=== PATIENT | female | born 1995 | race Caucasian/White ===

== ENCOUNTER 2016-10-05 19:03 | Emergency (ER) | payer OTHER ==
--- NOTE | 2016-10-05 19:30 | CPEKG ---
Heart Rate: 76 RR Interval: 789 P-R Interval: 132 QRSD Interval: 82 QT Interval: 376 QTC Interval: 423 P [place]: 8 QRS [place]: 41 T Wave [place]: 34 EKG Severity - NORMAL ECG - EKG Impression: SINUS RHYTHM Electronically Signed By: David Farley 05-Oct-2016 23:05:15
--- NOTE | 2016-10-05 19:40 | EDPHY ---
HPI/HX/ROS/PE/MDM Narrative: CHIEF COMPLAINT: Chest pain HPI: This patient is a normally healthy 21 year old female who presents to the Emergency Department complaining of left-sided chest pain beginning two days ago and worsening over time. She describes the pain as initially similar to heartburn and presenting episodically, localized to her left epigastric region and substernal chest. Today, however, the pain has remained persistent and has began to radiate superiorly to her left shoulder and left back. She reports one episode of near syncope and vomiting earlier today after eating. She has never experienced any similar pain in the past. She denies dyspnea, weakness, fever or chills, hematemesis, or any additional complaints. REVIEW OF SYSTEMS: Aside from elements discussed in the HPI, a comprehensive 10-point review of systems was reviewed and is negative. PMH: Asthma. IUD in place. SOCIAL HISTORY: Smokes occasionally. PHYSICAL EXAM: General:Patient is alert, in no acute distress. ENT:Eyes are normal to inspection. ENT inspection normal. Neck: Normal inspection. Full range of motion. Respiratory:No respiratory distress. Breath sounds normal bilaterally. Cardiovascular: Regular rate and rhythm. Strong peripheral pulses. Normal cap refill. Abdomen:Mild epigastric tenderness. There are no peritoneal signs. There are normal bowel sounds. Back: Normal to inspection. No tenderness to palpation. Skin: Normal color. No rash. Warm and dry. Extremities: Normal appearance. Full range of motion. Neuro: Oriented x3. Normal motor function. Normal sensory function. ED Course: Normally healthy, well-appearing 21-year-old female presents with complaint of epigastric abdominal pain and left-sided chest pain with increasing radiation to shoulder and back. Her pain is not exertional or pleuritic in nature. It is associated with vomiting after eating today. There is no point tenderness on exam. Plan for abdominal US, chest x-ray, and labs. Chest x-ray reviewed by me reveals no acute abnormality. 2024: US of the abdomen is negative per Dr. Marco Antonio Alvarez, radiology. Labs reviewed. Bilirubin is elevated at 2.9. AST elevated at 4890. ALT elevated at 2768. Upon further inquiry, the patient tells me that she has been taking doxycycline for facial lesion for the past 3 weeks. She denies any recent international travel. No recent Tylenol use. 2212: Consultation with Dr. Delgadillo, gastroenterology, who will see the patient in his office on Saturday. He recommends obtaining an ammonia level and hepatitis panel in preparation for that appointment. She will need to return to the ED daily this weekend for labs. I discussed this with the patient. She is agreeable to this. TO TOMORROW'S PROVIDER: The patient needs daily LFTs and ProTime. If they are rising significantly, then she needs to be admitted. Otherwise, she has instructions to follow-up with Dr. Delgadillo on Saturday. MDM: Patient presents with epigastric pain and is found to have significantly elevated LFTs. She denies out of the country travel, Tylenol use, excessive alcohol abuse. She has been taking doxycycline for the last three weeks for a lesion on her face, prescribed by a medical assistant dermatology. - Data Points Imaging Results: Imaging Impressions Abdomen Ultrasound 10/05/16 19:39 Impression: Negative right upper quadrant ultrasound. No findings of cholelithiasis or acute cholecystitis. Results called and discussed with David Farley MD on 10/05/2016 at 20:24 Chest X-Ray 10/05/16 19:39 Impression: Chest negative for acute cardiopulmonary abnormality. Thoracic scoliosis is seen. Imaging: Discussed imaging studies w/ truck and transport mechanic Radiologist Laboratory Results: Laboratory Results 10/05/16 20:10 10/05/16 20:10 10/05/16 10/05/16 10/05/16 20:10 20:10 20:10 WBC 6.43 10^3/uL 10^3/uL (3.80-9.50) RBC 4.75 10^6/uL 10^6/uL (4.18-5.33) Hgb 15.1 g/dL g/dL (12.6-16.3) Hct 43.9 % % (38.0-47.0) MCV 92.4 fL fL (81.5-99.8) MCH 31.8 pg pg (27.9-34.1) MCHC 34.4 g/dL g/dL (32.4-36.7) RDW 12.1 % % (11.5-15.2) Plt Count 210 10^3/uL 10^3/uL (150-400) MPV 10.9 fL fL (8.7-11.7) Neut % (Auto) 75.2 % H % (39.3-74.2) Lymph % (Auto) 18.2 % % (15.0-45.0) Garden % (Auto) 4.2 % L % (4.5-13.0) Eos % (Auto) 1.2 % % (0.6-7.6) Baso % (Auto) 0.9 % % (0.3-1.7) Nucleat RBC Rel Count 0.0 % % (0.0-0.2) Absolute Neuts (auto) 4.83 10^3/uL 10^3/uL (1.70-6.50) Absolute Lymphs (auto) 1.17 10^3/uL 10^3/uL (1.00-3.00) Absolute Monos (auto) 0.27 10^3/uL L 10^3/uL (0.30-0.80) Absolute Eos (auto) 0.08 10^3/uL 10^3/uL (0.03-0.40) Absolute Basos (auto) 0.06 10^3/uL 10^3/uL (0.02-0.10) Absolute Nucleated RBC 0.00 10^3/uL 10^3/uL (0-0.01) Immature Gran % 0.3 % % (0.0-1.1) Immature Gran # 0.02 10^3/uL 10^3/uL (0.00-0.10) Sodium 136 mEq/L mEq/L (134-144) Potassium 3.9 mEq/L mEq/L (3.5-5.2) Chloride 102 mEq/L mEq/L (97-110) Carbon Dioxide 23 mEq/l mEq/l (22-31) Anion Gap 11 mEq/L mEq/L (8-16) BUN 13 mg/dL mg/dL (7-23) Creatinine 0.8 mg/dL mg/dL (0.6-1.0) Estimated GFR > 60 Glucose 87 mg/dL mg/dL (70-100) Calcium 9.7 mg/dL mg/dL (8.5-10.4) Total Bilirubin 2.9 mg/dL H mg/dL (0.1-1.4) Conjugated Bilirubin 1.3 mg/dL H mg/dL (0.0-0.5) Unconjugated Bilirubin 1.6 mg/dL H mg/dL (0.0-1.1) AST 4890 IU/L H IU/L (14-46) ALT 2768 IU/L H IU/L (9-52) Alkaline Phosphatase 73 IU/L IU/L (38-126) Troponin I < 0.012 ng/mL ng/mL (0-0.034) Total Protein 7.7 g/dL g/dL (6.3-8.2) Albumin 4.7 g/dL g/dL (3.5-5.0) Lipase 221.0 IU/L IU/L (23-300) Beta HCG, Qual NEGATIVE General Time Seen by Provider: 10/05/16 19:29 Initial Vital Signs: Initial Vital Signs Temperature (C) 36.5 C 10/05/16 19:06 Heart Rate 91 10/05/16 19:06 Respiratory Rate 16 10/05/16 19:06 Blood Pressure 114/74 10/05/16 19:06 O2 Sat (%) 97 10/05/16 19:06 O2 Delivery Mode Room Air Allergies/Adverse Reactions: latex Allergy (Verified 10/05/16 19:12) sulfamethoxazole [From Bactrim] Allergy (Verified 10/05/16 19:12) tree and shrub pollen Allergy (Verified 10/05/16 19:12) trimethoprim [From Bactrim] Allergy (Verified 10/05/16 19:12) Home Medications: Medication Instructions Recorded NK [No Known Home Meds] 10/05/16 Departure - Departure Disposition: Home, Routine, Self-Care Clinical Impression: Elevated liver function tests Abdominal pain Qualifiers: Abdominal location: left upper quadrant Qualified Code(s): R10.12 - Left upper quadrant pain Condition: Good Instructions: Abdominal Pain (ED) Additional Instructions: 1. Stop taking doxycycline immediately. 2. Dr. Delgadillo, lathe machinist, will see you in his office on Saturday. Call his office first thing Saturday to determine your appointment time. 3. Return to the Emergency Department on Saturday and Saturday for daily lab work in preparation for your appointment at the lathe machinist. 4. Return to the Emergency Department immediately with severe pain, uncontrollable vomiting or diarrhea, or for other serious concerns. Referrals: Pato Delgadillo MD [Medical Doctor] - As per Instructions Report Scribed for: David Farley Report Scribed by: Katie Shanks Date of Report: 10/05/16 Time of Report: 19:35 Physician Review and Approval Statement: Portions of this note were transcribed by an ED scribe. I personally performed the history, physical exam, and medical decision making; and confirm the accuracy of the information in the transcribed note.
[2016-10-05 20:18] LABS: % IMMATURE GRANULYOCYTES 0.3 % (0.0-1.1); ABSOLUTE IMMATURE GRANULOCYTES 0.02 10^3/uL (0.00-0.10); ADD DIFF? NO; ADD MORPH? NO; ADD SCAN? NO; ATYPICAL LYMPHOCYTE FLAG 0 (0-99); FRAGMENT RBC FLAG 0 (0-99); HEMATOCRIT 43.9 % (38.0-47.0); HEMOGLOBIN 15.1 g/dL (12.6-16.3); LEFT SHIFT FLG 0 (0-99); LIPEMIA HEMOLYSIS FLAG 90 (0-99); MEAN CELL HEMOGLOBIN 31.8 pg (27.9-34.1); MEAN CELL HEMOGLOBIN CONCENTR. 34.4 g/dL (32.4-36.7); MEAN CELL VOLUME 92.4 fL (81.5-99.8); MEAN PLATELET VOLUME 10.9 fL (8.7-11.7); PLATELET CLUMPS FLAG 10 (0-99); PLATELET COUNT 210 10^3/uL (150-400); RED BLOOD CELL COUNT 4.75 10^6/uL (4.18-5.33); RED CELL DISTRIBUTION WIDTH 12.1 % (11.5-15.2)
[2016-10-05 20:29] LABS: ALBUMIN 4.7 g/dL (3.5-5.0); ALKALINE PHOSPHATASE 73 IU/L (38-126); ANION GAP 11 mEq/L (8-16); BILIRUBIN,TOTAL 2.9 mg/dL (0.1-1.4); BILIRUBIN-CONJUGATED 1.3 mg/dL (0.0-0.5); BILIRUBIN-UNCONJUGATED 1.6 mg/dL (0.0-1.1); CALCIUM 9.7 mg/dL (8.5-10.4); CARBON DIOXIDE 23 mEq/l (22-31); CHLORIDE 102 mEq/L (97-110); CREATININE 0.8 mg/dL (0.6-1.0); GLOMERULAR FILTRATION RATE > 60; GLUCOSE 87 mg/dL (70-100); POTASSIUM 3.9 mEq/L (3.5-5.2); SODIUM 136 mEq/L (134-144); TOTAL PROTEIN 7.7 g/dL (6.3-8.2)
[2016-10-05 21:00] LABS: TROPONIN I < 0.012 ng/mL (0-0.034)
[2016-10-05 21:35] LABS: ALANINE AMINOTRANSFERASE 2768 IU/L (9-52); ASPARTATE AMINOTRANSFERASE 4890 IU/L (14-46)
[2016-10-05 22:07] VITALS: PULSE 70; TEMP 98.4; O2SAT 96
[2016-10-05 22:33] LABS: INR 1.28 (0.83-1.16)
[2016-10-05 22:34] LABS: APTT 28.6 SEC (23.0-38.0)
[2016-10-05 22:45] VITALS: BP 119/80; RESP 18
== END 2016-10-05 22:44 | disposition home or self-care (01) ==
DX: R10.12 Left upper quadrant pain (principal); R79.89 Other specified abnormal findings of blood chemistry; J45.909 Unspecified asthma, uncomplicated; F17.200 Nicotine dependence, unspecified, uncomplicated; Z91.040 Latex allergy status
CPT/HCPCS: G0472

== ENCOUNTER 2016-10-06 14:35 | Emergency (ER) | payer OTHER ==
[2016-10-06 14:43] VITALS: RESP 20; TEMP 98.2; O2SAT 95
--- NOTE | 2016-10-06 15:17 | EDPHY ---
H & P Time Seen by Provider: 10/06/16 14:51 HPI/ROS: Chief complaint. Abnormal labs yesterday HPI. 21-year-old female was seen yesterday for left-sided chest discomfort. She was found to have a bilirubin of 2.9, AST 4890, ALT 2768. She had a normal abdominal ultrasound and normal chest x-ray. Dr. Farley consulted riding coach Dr. Bi coffman who will see the patient in the office on Saturday but requested the patient return for daily LFTs and pro times. He also requested ammonia and hepatitis panel. Patient is here for repeat lab work. She feels better today and has more of an appetite. She had been nauseated last few days but has no nausea today and is eating. She has decreased left- sided chest and upper abdominal pain today. Otherwise no vomiting. Chart is reviewed. Apparently there has been no recent travel or known exposures. No Tylenol ingestions. ROS Constitutional. no fever/chills, no weakness Eyes. no problems with vision ENT. no sore throat, no nasal drainage Cardiovascular. no chest pain Respiratory. no shortness of breath, no cough Abdominal. Improving left abdominal pain and decreased nausea . no problems urinating MS. no calf pain/swelling, no neck/back pain, no joint pain Skin. no rash Lymph. no swollen glands Neuro. no headache, no dizziness, no difficulty walking or with speech Past Medical/Surgical History: Asthma and IUD Social History: Single, daily smoker, no alcohol Smoking Status: Current some day smoker Physical Exam: General Appearance: Alert pleasant well-developed female mild distress vital signs significant for heart rate 114 Eyes: Pupils equal and round no pallor or injection. ENT, Mouth: Mucous membranes are moist. Respiratory: There are no retractions, lungs are clear to auscultation. Cardiovascular: Regular rate and rhythm. Gastrointestinal: Abdomen is soft with mild left-sided tenderness. No masses. Normal bowel sounds Neurological: Awake and alert, sensory and motor exams grossly normal. Skin: Warm and dry, no rashes. Musculoskeletal: Neck is supple nontender. Extremities symmetrical, full range of motion. Psychiatric: Patient is oriented X 3, there is no agitation. Constitutional: Initial Vital Signs Temperature (C) 36.8 C 10/06/16 14:40 Heart Rate 114 H 10/06/16 14:40 Respiratory Rate 20 10/06/16 14:40 Blood Pressure 107/60 10/06/16 14:40 O2 Sat (%) 95 10/06/16 14:40 O2 Delivery Mode Room Air Allergies/Adverse Reactions: latex Allergy (Verified 10/05/16 19:12) sulfamethoxazole [From Bactrim] Allergy (Verified 10/05/16 19:12) tree and shrub pollen Allergy (Verified 10/05/16 19:12) trimethoprim [From Bactrim] Allergy (Verified 10/05/16 19:12) Home Medications: Medication Instructions Recorded NK [No Known Home Meds] 10/06/16 Medical Decision Making ED Course/Re-evaluation: Re-evaluation 4:35 p.m.. Patient is stable. She and I discussed laboratory evaluation. Her labs are much improved from yesterday. She asks whether she has come back tomorrow could she really does not want to. I counseled her that properly she should have labs done tomorrow as well before seen a riding coach on Saturday. Certainly she should have repeat labs done tomorrow if she is worse in any way. Differential Diagnosis: Resolving hepatic injury. No evidence for hepatitis. Her protime and liver function studies are normal. Her ammonia level is normal. Tylenol is negative The etiology of this is unclear. - Data Points Laboratory Results: 10/06/16 10/06/16 10/06/16 15:30 15:30 15:30 PT 15.5 SEC H SEC (12.0-15.0) INR 1.23 H (0.83-1.16) APTT 27.4 SEC SEC (23.0-38.0) Total Bilirubin Conjugated Bilirubin Unconjugated Bilirubin AST ALT Alkaline Phosphatase Ammonia < 9.0 uMOL/L L uMOL/L (9.0-30.0) Total Protein Albumin Lipase Acetaminophen Hepatitis A IgM Ab Pending Hep Bs Antigen Pending Hep B Core IgM Ab Pending Hepatitis C Antibody Pending 10/06/16 15:30 PT INR APTT Total Bilirubin 1.6 mg/dL H mg/dL (0.1-1.4) Conjugated Bilirubin 0.7 mg/dL H mg/dL (0.0-0.5) Unconjugated Bilirubin 0.9 mg/dL mg/dL (0.0-1.1) AST 1748 IU/L H IU/L (14-46) ALT 1772 IU/L H IU/L (9-52) Alkaline Phosphatase 61 IU/L IU/L (38-126) Ammonia Total Protein 6.4 g/dL g/dL (6.3-8.2) Albumin 3.9 g/dL g/dL (3.5-5.0) Lipase 174.0 IU/L IU/L (23-300) Acetaminophen < 10 mcg/mL L mcg/mL (10.0-30.0) Hepatitis A IgM Ab Hep Bs Antigen Hep B Core IgM Ab Hepatitis C Antibody Departure - Departure Disposition: Home, Routine, Self-Care Clinical Impression: Abdominal pain Qualifiers: Abdominal location: left upper quadrant Qualified Code(s): R10.12 - Left upper quadrant pain Condition: Good Instructions: Abdominal Pain (ED) Additional Instructions: Avoid alcohol and Tylenol. Normal eating and drinking. Ideally you should have labs done again tomorrow but otherwise I will give you a prescription for outpatient labs to be done on Saturday before your appointment with Gastroenterology. Return for worsening pain, fever, vomiting. Referrals: Anna Marie Muller PA [Primary Care Provider] - As per Instructions Pato Delgadillo MD [Medical Doctor] - 1-2 days without fail
[2016-10-06 15:45] LABS: INR 1.23 (0.83-1.16); PROTIME(PATIENT) 15.5 SEC (12.0-15.0)
[2016-10-06 15:46] LABS: APTT 27.4 SEC (23.0-38.0)
[2016-10-06 15:58] LABS: ALBUMIN 3.9 g/dL (3.5-5.0); ALKALINE PHOSPHATASE 61 IU/L (38-126); BILIRUBIN,TOTAL 1.6 mg/dL (0.1-1.4); BILIRUBIN-CONJUGATED 0.7 mg/dL (0.0-0.5); BILIRUBIN-UNCONJUGATED 0.9 mg/dL (0.0-1.1); TOTAL PROTEIN 6.4 g/dL (6.3-8.2)
[2016-10-06 16:18] LABS: ALANINE AMINOTRANSFERASE 1772 IU/L (9-52)
[2016-10-06 16:30] LABS: ASPARTATE AMINOTRANSFERASE 1748 IU/L (14-46)
[2016-10-06 16:49] VITALS: BP 98/63; PULSE 81
== END 2016-10-06 16:49 | disposition home or self-care (01) ==
DX: R10.12 Left upper quadrant pain (principal); F17.200 Nicotine dependence, unspecified, uncomplicated; Z91.040 Latex allergy status
CPT/HCPCS: G0472; G0480

== ENCOUNTER 2017-05-20 12:22 | Emergency (ER) | payer OTHER ==
[2017-05-20 12:47] VITALS: BP 120/76; PULSE 79; RESP 16; TEMP 97.7; O2SAT 99
--- NOTE | 2017-05-20 13:38 | EDPHY ---
H & P Stated Complaint: Fell snowboarding on Sat;no LOC;+helmet;wants to be checked for concussion Time Seen by Provider: 05/20/17 13:38 HPI/ROS: CHIEF COMPLAINT: Headache, nausea following snowboarding accident HISTORY OF PRESENT ILLNESS: Patient presents to the ED for evaluation of a severe headache unimproved with ibuprofen after she struck her head while snowboarding 2 days ago. She was helmeted. She did not lose consciousness. She denies any focal numbness or weakness. She does report photophobia. She denies any neck, back, chest or extremity pain. She reports her headache is moderate to severe in nature. She denies additional acute complaints. She does have a history of asthma and uses an albuterol inhaler. REVIEW OF SYSTEMS: A comprehensive 10 point review of systems is otherwise negative aside from elements mentioned in the history of present illness. Source: Patient Exam Limitations: No limitations - Personal History LMP (Females 10-55): Extended Cycle BCP/Inj Current Tetanus Diphtheria and Acellular Pertussis (TDAP): Yes - Medical/Surgical History Hx Asthma: Yes Hx Chronic Respiratory Disease: No Hx Diabetes: No Hx Cardiac Disease: No Hx Renal Disease: No Hx Cirrhosis: No Hx Alcoholism: No Hx HIV/AIDS: No Hx Splenectomy or Spleen Trauma: No Other PMH: asthma - Social History Smoking Status: Current some day smoker - Physical Exam Exam: General Appearance: Alert, no distress Head: Atraumatic Eyes: Pupils equal, round, reactive ENT, Mouth: No hemotympanum, no oral trauma Neck: Nontender, trachea midline Respiratory: No chest wall tender, subcutaneous air, lungs clear bilaterally Cardiovascular: Regular rate and rhythm Abdomen: Abdomen is soft and nontender, pelvis stable Skin: No lacerations, No abrasion Back: No midline T/L/S pain Extremities: Nontender, full range of motion Neurological: A&Ox3, normal motor function, normal sensory exam Constitutional: Initial Vital Signs Temperature (C) 36.5 C 05/20/17 12:30 Heart Rate 79 05/20/17 12:30 Respiratory Rate 16 05/20/17 12:30 Blood Pressure 120/76 05/20/17 12:30 O2 Sat (%) 99 05/20/17 12:30 Allergies/Adverse Reactions: latex Allergy (Verified 05/20/17 12:44) sulfamethoxazole [From Bactrim] Allergy (Verified 05/20/17 12:44) tree and shrub pollen Allergy (Verified 05/20/17 12:44) trimethoprim [From Bactrim] Allergy (Verified 05/20/17 12:44) Home Medications: Medication Instructions Recorded NK [No Known Home Meds] 10/06/16 Medical Decision Making - Diagnostics Imaging Results: Imaging Impressions Head CT 05/20/17 13:47 Impression: No acute intracranial findings. Findings discussed with Dr. Bulmaro Montgomery on May 20, 2017 at 1427 hours. ED Course/Re-evaluation: The patient presents to the ED with a severe persistent headache following a head injury which occurred 48 hr ago. She is noted to be neurologically intact. I have cleared her cervical spine via nexus criteria. Given the duration of her headache and severity is CT scan of the head was ordered for evaluation of possible subarachnoid hemorrhage. CT scan demonstrates no evidence of intracranial hemorrhage or skull fracture. The patient will be discharged home with a concussion aftercare instruction sheet. She is given return precautions and follow-up instructions. I re-evaluated the patient at 2:30 p.m.. She is neurologically intact and in no acute distress. Differential Diagnosis: Differential diagnosis considered includes subarachnoid hemorrhage, skull fracture, concussion, cervical spine injury Departure - Departure Disposition: Home, Routine, Self-Care Clinical Impression: Concussion Condition: Good Instructions: Concussion (ED) Additional Instructions: 1. Take Ibuprofen or Motrin 600 mg by mouth three times a day. 2. Concussion aftercare as directed. 3. Please follow up with the concussion specialist you have been referred to, Dr. Harp, for any symptoms which persists past 5-7 days. Referrals: Doris Harp MD [Medical Doctor] - As per Instructions
== END 2017-05-20 14:42 | disposition home or self-care (01) ==
DX: S06.0X0A Concussion without loss of consciousness, initial encounter (principal); J45.909 Unspecified asthma, uncomplicated; F17.200 Nicotine dependence, unspecified, uncomplicated; Z91.040 Latex allergy status; V00.318A Other snowboard accident, initial encounter; Y99.8 Other external cause status; Y93.23 Activity, snow (alpine) (downhill) skiing, snowboarding, sledding, tobogganing and snow tubing

== ENCOUNTER 2017-08-11 08:37 | Emergency (ER) | payer OTHER ==
[2017-08-11 08:42] VITALS: BP 112/77
--- NOTE | 2017-08-11 08:49 | EDPHY ---
H & P Stated Complaint: Rolled R ankle last evening while roller skating Time Seen by Provider: 08/11/17 08:48 - Personal History LMP (Females 10-55): Extended Cycle BCP/Inj Current Tetanus Diphtheria and Acellular Pertussis (TDAP): Yes - Medical/Surgical History Hx Asthma: Yes Hx Chronic Respiratory Disease: No Hx Diabetes: No Hx Cardiac Disease: No Hx Renal Disease: No Hx Cirrhosis: No Hx Alcoholism: No Hx HIV/AIDS: No Hx Splenectomy or Spleen Trauma: No Other PMH: asthma - Social History Smoking Status: Current some day smoker Constitutional: Initial Vital Signs Temperature (C) 36.6 C 08/11/17 08:38 Heart Rate 92 08/11/17 08:38 Respiratory Rate 16 08/11/17 08:38 Blood Pressure 112/77 08/11/17 08:38 O2 Sat (%) 98 08/11/17 08:38 O2 Delivery Mode Room Air Allergies/Adverse Reactions: latex Allergy (Verified 08/11/17 08:38) sulfamethoxazole [From Bactrim] Allergy (Verified 08/11/17 08:38) tree and shrub pollen Allergy (Verified 08/11/17 08:38) trimethoprim [From Bactrim] Allergy (Verified 08/11/17 08:38) Home Medications: Medication Instructions Recorded Hydrocodone/APAP 5/325 [[place] 1 - 2 each PO Q4-6PRN PRN #10 tab 08/11/17 5/325] Medical Decision Making - Diagnostics Imaging: I viewed and interpreted images myself ED Course/Re-evaluation: CHIEF COMPLAINT: Right ankle injury HISTORY OF PRESENT ILLNESS: The patient is a 21 y/o female complaining of right ankle pain secondary to a fall while roller skating at a [employer] last night. She has been unable to bare weight or walk since the injury due to pain particularly along the lateral malleolus. She has no pain in her foot. She took 3 ibuprofen and has been using ice for pain with slight alleviation. She denies other injuries, head strike, or loss of consciousness from the fall. She is normally healthy. REVIEW OF SYSTEMS: A 10 point review of systems was performed and is negative with the exception of the elements mentioned in the history of present illness. PHYSICAL EXAM: HR, BP, O2 Sat, RR. Temp noted General Appearance: Alert, well hydrated, appropriate, and non-toxic appearing. Head: Atraumatic without scalp tenderness or obvious injury Eyes: Pupils equal, round, reactive to light and accommodation, EOMI, no trauma , no injection. Nose: Atraumatic, no rhinorrhea, clear. Throat: Mucus membranes moist. Neck: Supple, nontender. Respiratory: No retractions, no distress, no wheezes, and no accessory muscle use. Lungs are clear to auscultation bilaterally. Cardiovascular: Regular rate and rhythm, no murmurs, rubs, or gallops. Dorsalis pedis pulses intact. Good capillary refill all extremities. Gastrointestinal: Abdomen is soft, nontender, non-distended, no masses, no rebound, no guarding, no peritoneal signs. Musculoskeletal: Tenderness, ecchymosis, and swelling over right lateral malleolus. No tenderness at the base of the right 5th metatarsal. Otherwise normal active ROM of all extremities, atraumatic. Neurological: Alert, appropriate, and interactive. The patient has non-focal cranial nerves, motor, sensory, and cerebellar exam. Skin: No rashes, good turgor, no nodules on palpation. Past medical history: Asthma Past surgical history: Denies Family history: Noncontributory Social history: Lives in [place]. Employed. Single. DIAGNOSTICS/PROCEDURES/CRITICAL CARE TIME: Right ankle x-ray: soft tissue swelling over lateral malleolus, negative for fracture. DIFFERENTIAL DIAGNOSIS: The differential diagnosis for the patient's knee injury included but was not limited to fracture, ligamentous injury, contusion, muscular strain, and meniscus injury. MEDICAL DECISION MAKING: This is a healthy 21 y/o female who presents with an isolated right ankle injury secondary to a fall while roller skating last night. She has tenderness, ecchymosis, and swelling over the right lateral malleolus that does not extend to the base of the 5th metatarsal. Suspect ankle sprain, though fibula fracture possible as well. Plan for x-ray and pain management. X-ray does not reveal obvious fracture. Patient will be placed in a stirrup splint and discharged with standard ankle sprain care and follow up instructions. Small [place] script provided if needed for severe pain. Return precautions discussed. She is comfortable with this plan. Departure - Departure Disposition: Home, Routine, Self-Care Clinical Impression: Sprain of ankle, right Qualifiers: Encounter type: initial encounter Involved ligament of ankle: anterior talofibular ligament Qualified Code(s): S93.491A - Sprain of other ligament of right ankle, initial encounter Condition: Good Instructions: Ankle Sprain (ED), Ankle Stirrup Splint (ED) Additional Instructions: 1. Take 600mg ibuprofen every 6-8 hours for pain and inflammation over the next several days. 2. Use [place] as prescribed as needed for severe pain. This medication can make you drowsy - do not use while driving. 3. Apply ice to sore areas intermittently if helpful for pain. 4. Wear splint as needed for comfort. 5. Use crutches, but attempt to weight bear as tolerated. 6. Follow up with orthopedist for unimproved symptoms over the next week. 7. Return to the ED for severe pain, weakness or numbness in your toes, or other worsening of condition. Referrals: Jason Rich MD [Medical Doctor] - As per Instructions Prescriptions: Hydrocodone/APAP 5/325 [[place] 5/325] 1 - 2 each PO Q4-6PRN PRN #10 tab PRN Reason: Pain, Moderate Report Scribed for: Palomo Camp Report Scribed by: Fang Capone Date of Report: 08/11/17 Time of Report: 09:07
== END 2017-08-11 09:17 | disposition home or self-care (01) ==
DX: S93.491A Sprain of other ligament of right ankle, initial encounter (principal); J45.909 Unspecified asthma, uncomplicated; F17.200 Nicotine dependence, unspecified, uncomplicated; Z91.040 Latex allergy status; V00.111A Fall from in-line roller-skates, initial encounter; Y99.8 Other external cause status; Y93.51 Activity, roller skating (inline) and skateboarding
CPT/HCPCS: L4350

== ENCOUNTER → 2017-08-26 | Outpatient (CLI) | payer OTHER | LOC: BMCIMAGING 14:31 | PROVIDERS: ATTEND Physician Assistant | DX: S89.191A Other physeal fracture of lower end of right tibia, initial encounter for closed fracture (principal); W19.XXXA Unspecified fall, initial encounter ==

== ENCOUNTER → 2017-09-12 | Outpatient (CLI) | payer OTHER | LOC: BMCIMAGING 14:53 | PROVIDERS: ATTEND Podiatrist Foot & Ankle Surgery | DX: S82.391D Other fracture of lower end of right tibia, subsequent encounter for closed fracture with routine healing (principal) ==